=== PATIENT | male | born 1990 | race Two or more races ===

== ENCOUNTER 2016-12-01 22:21 | Emergency (ER) | payer OTHER ==
[~2016-12-01] VITALS: Ht 180.3 cm; Wt 98.9 kg
[2016-12-01 22:35] VITALS: BP 156/87
[2016-12-01] MEDS ORDERED: FLUT9.9S NS (23:21)
[2016-12-01] MEDS ORDERED: IBUP-1007 PO (23:21)
--- NOTE | 2016-12-01 23:21 | PHYS DOC ---
Past Medical History Past Medical History: No Pertinent History, Other Additional Past Medical Histor: dental Past Surgical History: No Surgical History Additional Information: Nonsmoker Alcohol Use: Occasionally Drug Use: None Adult General Chief Complaint Chief Complaint: DENTAL PROBLEM HPI HPI Patient is a 26 year old male who presents with right maxillary sinus pain for one week. He reports right-sided nasal congestion and subjective fever. He denies sore throat or cough. The patient was seen by his dentist, thinking that the pain was due to a tooth problem. He was diagnosed with a sinus infection and prescribed [place] and Augmentin. He began taking these yesterday. He states that he took some ibuprofen of his 's that actually was more helpful than the [place] in relieving his pain. He does not have a PCP. Review of Systems Review of Systems Constitutional: Denies fever or chills. [] Eyes: Denies change in visual acuity, redness, or eye pain. [] HENT: Denies ear pain or sore throat. Reports nasal congestion and sinus pressure. Respiratory: Denies cough or shortness of breath. [] Cardiovascular: Denies chest pain, palpitations or edema. [] GI: Denies abdominal pain, nausea, vomiting, bloody stools or diarrhea. [] : Denies dysuria, hematuria or urinary frequency. [] Musculoskeletal: Denies back pain or joint pain. [] Integument: Denies rash or skin lesions. [] Neurologic: Denies headache, focal weakness or sensory changes. [] Endocrine: Denies polyuria or polydipsia. [] Psych: Denies anxiety or depression. [] All systems reviewed and negative unless otherwise stated in the HPI. Physical Exam Physical Exam Constitutional: Well developed, well nourished, no acute distress, non-toxic appearance. [] HENT: Normocephalic, atraumatic, bilateral external ears normal, oropharynx moist, no oral exudates, nose normal. Bilateral TMs without erythema or bulging. There is no posterior pharyngeal erythema or tonsillar edema. Bilateral nasal turbinates are swollen and erythematous. There is tenderness to palpation over the right maxillary sinus. No tenderness over the left maxillary sinus or bilateral frontal sinuses. There is no dental tenderness or dental abscess. Eyes: PERRLA, EOMI, conjunctiva normal, no discharge. [] Neck: Normal range of motion, no tenderness, supple, no stridor. [] Skin: Warm, dry, no erythema, no rash. [] Neurologic: Alert and oriented X 3, normal motor function, normal sensory function, no focal deficits noted. [] Psychologic: Affect normal, judgement normal, mood normal. [] Current Patient Data Vital Signs Vital Signs Date Time Temp Pulse Resp B/P Pulse Ox O2 Delivery O2 Flow Rate FiO2 12/01/16 22:35 98.6 89 20 156/87 98 Room Air 98.6 EKG EKG [] Radiology/Procedures Radiology/Procedures [] Course & Med Decision Making Course & Med Decision Making Pertinent Labs and Imaging studies reviewed. (See chart for details) [] Dragon Disclaimer Dragon Disclaimer This electronic medical record was generated, in whole or in part, using a voice recognition dictation system. Departure Departure Impression: Primary Impression: Sinusitis Disposition: 01 HOME, SELF-CARE Condition: STABLE Patient Instructions: Sinusitis, [id number] Additional Instructions: Please use the prescribed nose spray daily to help relieve sinus pressure and inflammation. Please continue the antibiotic prescribed by your dentist until it is all gone, even if you are feeling better. Please follow-up with Dr. Martinez, ENT specialist. Call [phone] to schedule an appointment. Sure to tell them that you are a [facility] resident when you make the appointment. Return to emergency department if you have any new or concerning symptoms. Scripts Ibuprofen 600 Mg [id number] Mg PO PRN Q6HRS PRN INFLAMMATION #20 TAB Prov:MIKEY LUCERO 12/01/16 Fluticasone Propionate (Flonase Allergy Relief)9.9 Ml [place].susp2 Sprays NS DAILY #1 BOTTLE Prov:MIKEY LUCERO 12/01/16 Problem Qualifiers Primary Impression: Sinusitis Sinusitis location: maxillary Chronicity: acute Recurrence: not specified as recurrent Qualified Code: J01.00 - Acute maxillary sinusitis, unspecified MIKEY LUCERO Dec 01, 2016 23:21
== END 2016-12-01 23:30 | disposition home or self-care (01) ==
LOC: ER 22:21
DX: J01.00 Acute maxillary sinusitis, unspecified (principal); R68.84 Jaw pain
CPT/HCPCS: 99283